=== PATIENT | male | born 1950 | race American Indian/Alaskan Native ===

== ENCOUNTER 2017-12-29 09:48 | Emergency (ER) | payer MEDICARE ==
--- NOTE | 2017-12-29 12:59 | Emergency Department Report ---
ED Rash HPI - HPI Chief Complaint: Skin Rash Stated Complaint: BEE STING; RASH Time Seen by Provider: 12/29/17 12:43 Duration: about a week ago. Suspected Cause: Insect Rash Symptoms: Yes Peeling, Yes Blistering, No Itching, No Facial Swelling, No Tongue/Oral Swelling, No Breathing Difficulties, No Wheezing/Dyspnea, No Fever, No Lightheaded, No Malaise, No Myalgias Severity: mild (4/10) Other History: This is a 67-year-old male here He was stung by a bee for over a week and it started off with 3 whelps which went away but he developed red rash that is painful around site that he was stung. He said he was put in steroid on it and it seems it is very made the rash worse. Denies any shortness of breath, chest pain, wheezing, cough or stridor. Denies any fever or chills. Pain is for a 10 and feels sore. No alleviating factors. ED Review of Systems ROS: Stated complaint: BEE STING; RASH Other details as noted in HPI Constitutional: denies: chills, fever ENT: denies: throat pain, congestion Respiratory: denies: cough, shortness of breath, SOB with exertion, SOB at rest , stridor, wheezing Cardiovascular: denies: chest pain, palpitations, edema, syncope Gastrointestinal: denies: nausea, vomiting Musculoskeletal: denies: back pain, joint swelling, arthralgia Skin: rash (painful). denies: lesions, pruritus Neurological: paresthesias. denies: numbness Psychiatric: denies: anxiety, depression Hematological/Lymphatic: denies: easy bleeding, easy bruising ED Past Medical Hx - Past Medical History Previous Medical History?: Yes Hx Hypertension: Yes Hx Diabetes: Yes - Surgical History Past Surgical History?: Yes - Family History Family history: hypertension - Social History Smoking Status: Never Smoker Substance Use Type: None - Medications Home Medications: Home Medications Medication Instructions Recorded Confirmed Last Taken Type Bacitracin/Polymixin B [Polysporin] 1 applicatio TP BID 7 Days #1 tube 12/29/17 Unknown Rx Clindamycin [Clindamycin CAP] 300 mg PO Q8H 10 Days #30 cap 12/29/17 Unknown Rx traMADol [Ultram 50 MG tab] 50 mg PO Q6HR PRN #12 tablet 12/29/17 Unknown Rx Rash Exam - Exam General: Vital signs noted. No distress. Alert and acting appropriately. This is a 57-year-old male well-nourished well-developed in no acute distress. HEENT: No Periorbital Edema, No Conjuctival Injection, No Chemosis, No Perioral Edema, No Tongue Edema, No Uvular Edema, No Compromised Airway, No Drooling Lungs: Yes Good Air Exchange, No Wheezes, No Ronchi, No Stridor, No Cough, No Labored Respirations, No Retractions, No Use of Accessory Muscles, No Other Abnormal Lung Sounds Heart: Yes Regular, No Murmur Front/Back of Body, Lg (Color): 1 - Patient with erythema, papular areas to left lumbar area. No drainage noted and no induration. Skin: Yes Maculopapular Rash (left lumbar area), Yes Excoriations, Yes Tenderness, Yes Erythema, No Urticarial Rash, No Morbilliform rash, No Bulla(e) , No Edema, No Encrustations, No Other Other: Positive: Abdomen Normal, Neurologic Normal, Musculoskeletal Normal ED Course Vital Signs 12/29/17 10:29 Temperature 99.3 F Pulse Rate 78 Respiratory 16 Rate Blood Pressure 112/88 O2 Sat by Pulse 98 Oximetry - Reevaluation(s) Reevaluation #1: 12/29/17 13:30 Patient given Decadron 10 mg IM and started on clindamycin 300 mg by mouth for infection. ED Medical Decision Making - Medical Decision Making This is a 67-year-old male here report that he was stung by bee over a week and he had 3 whelps and then started to develop redness around the area. Patient has been applying steroid creams inside and he said it made it worse Assessment/plan 1: Inset bite with cellulitis-the patient given clindamycin 300 mg emergency room started treatment for bacterial infection. Decadron 10 milligrams IM given. I discussed patient diagnoses, treatment plan and medication and I told he needs follow-up with director of critical care in 2 days for evaluation. For evaluation. Patient voiced understanding and discharged home in stable condition with prescription for clindamycin , Ultram and bacitracin ointment. He is to follow- up with director of critical care in 2 days. Critical care attestation.: If time is entered above; I have spent that time in minutes in the direct care of this critically ill patient, excluding procedure time. ED Disposition Clinical Impression: Cellulitis of skin of back Insect bite Qualifiers: Encounter type: initial encounter Qualified Code(s): W57.XXXA - Bitten or stung by nonvenomous insect and other nonvenomous arthropods, initial encounter Disposition: - TO HOME OR SELFCARE Is pt being admited?: No Does the pt Need Aspirin: No Condition: Stable Instructions: Cellulitis (ED), Insect Bite or Sting (ED) Additional Instructions: Please keep affected area clean and dry Take Medication as prescribed All of the director of critical care regarding rash/skin infection. Prescriptions: Bacitracin/Polymixin B [Polysporin] 1 applicatio TP BID 7 Days #1 tube Clindamycin [Clindamycin CAP] 300 mg PO Q8H 10 Days #30 cap traMADol [Ultram 50 MG tab] 50 mg PO Q6HR PRN #12 tablet PRN Reason: Pain Referrals: KAMLESH GUZMAN MD [Primary Care Provider] - 12/31/17 CORI BYERS MD [Staff Physician] - 12/31/17 Forms: Work/School Release Form(ED)
[2017-12-29] MEDS ORDERED: DECADRON IM STA (13:00)
[2017-12-29] MEDS ORDERED: CLEOCIN PO ONE (13:01)
[2017-12-29 13:45] VITALS: BP 131/68
== END 2017-12-29 13:45 | disposition home or self-care (01) ==
LOC: ED 09:48
DX: L03.312 Cellulitis of back [any part except buttock and flank] (principal); I10 Essential (primary) hypertension; E11.9 Type 2 diabetes mellitus without complications; W57.XXXA Bitten or stung by nonvenomous insect and other nonvenomous arthropods, initial encounter; Y93.89 Activity, other specified; Y99.8 Other external cause status; Y92.89 Other specified places as the place of occurrence of the external cause
CPT/HCPCS: 96372; 99282; J1100